=== PATIENT | male | born 1985 | race Two or more races ===

== ENCOUNTER 2016-05-30 23:59 | Emergency (ER) | payer SELFPAY ==
[~2016-05-30 23:59] MED LIST: AEROECLIPSE II1 EACH MC; ALBUTEROL MININEB INH; ALBUTEROL2.5 MG/0.5 INH; DOXYCYCLINE HY100 M3 PO; PREDNISONE10 MG/DOSE PO; SYMBICORT INH; [UNRECOGNIZED DRUG - OTHER] MC
== END 2016-05-31 01:00 | disposition home or self-care (01) ==
LOC: CED 23:59
DX: J45.909 Unspecified asthma, uncomplicated (principal)
CPT/HCPCS: 94644; 99283